=== PATIENT | female | born 1995 | race Caucasian/White ===

== ENCOUNTER 2017-12-07 12:43 | Emergency (ER) | payer OTHER ==
[~2017-12-07] VITALS: Ht 157.5 cm; Wt 98.0 kg
[2017-12-07 12:53] VITALS: BP 138/67
--- NOTE | 2017-12-07 13:06 | NUR ---
PT PRESENTS TO ED C/O NECK PAIN AND SOB SINCE THIS MORNING. PT HAS A NOTICEABLE LUMP TO ANTERIOR MEDIAL LEFT NECK, STATES SHE HAS BEEN SEEN BY HER PCP, AND WAS SEEN BY ENDROCRINOLOGIST AND HAD US DONE WITH RESULTS READ, BUT THIS MORNING HAD INCREASED PAIN AND SOB AND WANTS TO BE CHECKED OUT AGAIN. DENIES N/V/DIZZINESS OR CP. AMBULATES WITH NORMAL GAIT. PENDING MD SERNA
--- NOTE | 2017-12-07 13:22 | NUR ---
DR WISDOM AT BEDSIDE
[2017-12-07] MEDS ORDERED: KETOROLAC 30 MG/ML VIAL IM ONE (13:25)
[2017-12-07 13:49] VITALS: BP 130/75
== END 2017-12-07 13:50 | disposition home or self-care (01) ==
LOC: MED 12:43
DX: E04.1 Nontoxic single thyroid nodule (principal)
CPT/HCPCS: 96372; 99283; J1885

== ENCOUNTER 2020-11-03 14:50 | Outpatient (CLI) | payer OTHER, SELFPAY ==
[~2020-11-03 14:50] MED LIST: DOXY100C12 PO; OMEP20TC12 PO
[2020-11-05] MEDS ORDERED: BUPIVACAINE MPF 0.25% 10 ML VIAL INJ ONE ×2 (07:13)
== END 2020-11-03 23:59 | disposition home or self-care (01) ==
LOC: MLB 14:50 → EDSTATUS 11-05 07:30
PROVIDERS: ATTEND Obstetrics & Gynecology
DX: Z20.822 Contact with and (suspected) exposure to COVID-19 (principal)
CPT/HCPCS: J3490

== ENCOUNTER 2020-12-25 11:10 | Inpatient (IN) | payer OTHER, SELFPAY ==
[~2020-12-25] VITALS: Ht 157.5 cm; Wt 104.3 kg
[2020-12-25 11:13] VITALS: BP 160/99
[2020-12-25] MEDS ORDERED: ONDANSETRON 4 MG/2 ML VIAL IVP ONE (11:40)
[2020-12-25] MEDS ORDERED: MORPHINE SULFATE 4 MG/ML SYR IVP ONE (11:40)
[2020-12-25 11:58] LABS: BASOPHILS # (AUTO) 0.1 K/uL (0.00-0.22); BASOPHILS % (AUTO) 0.6 % (0.0-2.0); EOSINOPHILS # (AUTO) 0.3 K/uL (0-0.4); EOSINOPHILS % (AUTO) 3.9 % (0.0-4.0); HEMATOCRIT 36.3 % (36-48); HEMOGLOBIN 11.8 g/dL (12.0-16.0); LYMPHOCYTES # (AUTO) 1.3 K/uL (2.5-16.5); LYMPHOCYTES % (AUTO) 16.2 % (20.5-51.1); MEAN CORPUSCULAR HEMOGLOBIN 24 pg (27-31); MEAN CORPUSCULAR HGB CONC 32 g/dL (33-37); MEAN CORPUSCULAR VOLUME 72.6 fL (80-94); MONOCYTES # (AUTO) 0.6 K/uL (0.8-1.0); MONOCYTES % (AUTO) 6.9 % (1.7-9.3); NEUTROPHILS % (AUTO) 72.4 % (42.2-75.2); PLATELET COUNT (AUTO) 168 K/uL (140-450); RED CELL DISTRIBUTION WIDTH 16.4 % (11.6-13.7); WHITE BLOOD COUNT (AUTO) 8.3 K/uL (4.8-10.8)
--- NOTE | 2020-12-25 12:02 | NUR ---
C/O LOWER ABDOMINAL PAIN, VAGINAL PAIN & BARTHOLIN'S CYST S/P I&D AT [facility] LAST NIGHT. PATIENT STATES SHE HAS BEEN HAVING EXCESSIVE AMOUNT OF BLEEDING AT CYST SITE, AND SOAKING AROUND 4 PADS. PATIENT IS HAVING 10/10 PAIN AT SITE. PMH: THYROID, GERD
[2020-12-25 12:08] LABS: ANION GAP 15.6 (8-16); CARBON DIOXIDE 24.5 mmol/L (21-32); CREATININE 0.5 mg/dL (0.6-1.3); POTASSIUM 4.1 mmol/L (3.5-5.1)
[2020-12-25 12:10] LABS: PROTHROMBIN TIME 9.9 secs (10.8-13.4)
--- NOTE | 2020-12-25 12:20 | NUR ---
NATHANAEL METCALF AT BEDSIDE FOR PELVIC EXAM WITH RN AT BEDSIDE. UPON INSPECTION OF ANGELITO CATHETER AND SITE OF BLEEDING, APPROX 500 ML OF BLOOD WAS LOST PT BEGAN BLEEDING AT CYST SITE. VSS. BLEEDING CONTROLLED IMMEDIATELY BY NATHANAEL USING MECHANICAL PRESSURE. MD DIAZ MADE AWARE. PT DOING WELL AT THIS TIME.
[2020-12-25] MEDS ORDERED: TRANEXAMIC ACID 1,000 MG/10 ML VIAL ONE (12:30)
[2020-12-25] MEDS ORDERED: LIDOCAINE/EPI 1% 1:100000 20 ML VIAL INJ ONE ×2 (12:32→13:05)
[2020-12-25] MEDS ORDERED: TRANEXAMIC ACID 1,000 MG/10 ML VIAL MC ONE (13:05)
[2020-12-25] MEDS ORDERED: KCL 20 MEQ/WATER INJ PREMIX 200 ML IV PRN (14:25)
[2020-12-25] MEDS ORDERED: MAGNESIUM OXIDE 400 MG TAB PO PRN (14:25)
[2020-12-25] MEDS ORDERED: LORazepam 1 MG TAB PO PRN (14:25)
[2020-12-25] MEDS ORDERED: ZOLPIDEM 5 MG TAB PO PRN (14:25)
[2020-12-25] MEDS ORDERED: HYDROcodone/APAP 5/325 MG 1 TAB TAB PO PRN (14:25)
[2020-12-25] MEDS ORDERED: ACETAMINOPHEN 325 MG TAB PO PRN (14:25)
[2020-12-25] MEDS ORDERED: POTASSIUM CHLORIDE 10 MEQ TABER PO PRN (14:25)
[2020-12-25] MEDS ORDERED: ONDANSETRON 4 MG/2 ML VIAL IVP PRN (14:25)
[2020-12-25] MEDS ORDERED: MAG SULF 2000 MG/WATER PREMIX 50 ML IV PRN (14:25)
[2020-12-25] MEDS ORDERED: HYDROmorphone 1 MG/ML AMP IVP PRN (14:25)
[2020-12-25] MEDS: DEXT 5% / NACL 0.45% 1,000 ML IV SCH (14:58)
--- NOTE | 2020-12-25 16:27 | NUR ---
REPORT GIVEN TO ALMA LIVINGSTON.
--- NOTE | 2020-12-25 16:29 | NUR ---
RECEIVED TELEPHONE REPORT FROM ER NURSE MAGALIE MARQUEZ.
--- NOTE | 2020-12-25 16:50 | NUR ---
Patient will be admitted to care of DR ARZOLA. Admited to MED SURG. Will go to room 105B. Belongings list completed. Report to ALMA LIVINGSTON.
[2020-12-25 17:15] VITALS: BP 109/60
--- NOTE | 2020-12-25 17:15 | NUR ---
PATIENT ARRIVED FROM ER .ABLE TO AMBULATE INDEPENDENTLY WITH STEADY GAIT. IV SITE INTACT, PATENT. SKIN INTACT. ORIENTED PATIENT TO ROOM AND CALL LIGHT. REVIEWED PLAN OF CARE WITH PATIENT. PATIENT VERBALIZED UNDERSTANDING. WILL CONTINUE TO MONITOR.
--- NOTE | 2020-12-25 18:30 | NUR ---
DR. DIAZ AT BEDSIDE REVIEWING PLAN OF CARE WITH PATIENT. WILL CONTINUE TO MONITOR.
--- NOTE | 2020-12-25 19:29 | NUR ---
GAVE REPORT TO NEUROLOGY STROKE PHYSICIAN NURSE FOR CONTINUITY OF CARE. PATIENT IN STABLE CONDITION.
[2020-12-25 20:00] VITALS: BP 117/60
--- NOTE | 2020-12-25 20:00 | NUR ---
RECEIVED BEDSIDE REPORT EARLIER FROM DAY RN FOR CONTINUITY OF CARE. PATIENT A/A/OX4, SITTING UP IN BED EATING DURING ROUNDS. PATIENT NOT ON ANY DISTRESS. DENIES ANY PAIN AT THIS TIME. IVF INFUSING ORDERED. DISCUSSED PLAN OF CARE WITH THE PATIENT AND VERBALIZED UNDERSTANDING. INSTRUCTED TO CALL IF SHE NEEDS ANYTHING. CALL LIGHT WITHIN REACH. WILL CONTINUE PLAN OF CARE.
[2020-12-25] MEDS: DOXYCYCLINE 100 MG CAP PO SCH (20:44)
--- NOTE | 2020-12-25 22:00 | NUR ---
ADMINISTERED THE SCHEDULED MEDICATION EARLIER AND PATIENT TOLERATED IT WELL. NO ADVERSE DRUG REACTION NOTED AND NO COMPLAIN FROM THE PATIENT.
--- NOTE | 2020-12-26 | NUR ---
PATIENT STILL AWAKE AND WATCHING TV, STATED THAT SHE COULDN'T SLEEP. NOT IN ANY DISTRESS NO COMPLAIN AT THIS TIME. CALL LIGHT WITHIN REACH.
--- NOTE | 2020-12-26 02:00 | NUR ---
PATIENT ASLEEP AT THIS TIME. VISIBLE SYMMETRICAL CHEST RISE AND FALL NOTED. SAFETY MEASURES IN PLACED.
[2020-12-26 04:00] VITALS: BP 93/63
--- NOTE | 2020-12-26 04:00 | NUR ---
PATIENT BP 93/48. PATIENT ASYMPTOMATIC, DENIES ANY DIZZINESS AND LIGHTHEADEDNESS. OTHERWISE VSS, AFEBRILE, [id number]% ON RA. PATIENT HAS SCANTY BLEEDING NOW. CALL LIGHT WITHIN REACH.
[2020-12-26] MEDS: DEXT 5% / NACL 0.45% 1,000 ML IV SCH ×2 (05:11→15:25)
--- NOTE | 2020-12-26 06:25 | NUR ---
PATIENT STABLE. NOT IN ANY DISTRESS. NO COMPLAIN AT THIS TIME. ALL NEEDS ATTENDED. CALL LIGHT WITHIN REACH. WILL ENDORSE THE PATIENT TO THE ONCOMING RN FOR CONTINUITY OF CARE.
[2020-12-26 06:39] LABS: BASOPHILS % (AUTO) 0.5 % (0.0-2.0); EOSINOPHILS # (AUTO) 0.4 K/uL (0-0.4); EOSINOPHILS % (AUTO) 5.7 % (0.0-4.0); HEMATOCRIT 29.6 % (36-48); HEMOGLOBIN 9.5 g/dL (12.0-16.0); LYMPHOCYTES # (AUTO) 1.8 K/uL (2.5-16.5); LYMPHOCYTES % (AUTO) 24.9 % (20.5-51.1); MEAN CORPUSCULAR HEMOGLOBIN 24 pg (27-31); MEAN CORPUSCULAR HGB CONC 32 g/dL (33-37); MEAN CORPUSCULAR VOLUME 74.3 fL (80-94); MONOCYTES # (AUTO) 0.6 K/uL (0.8-1.0); MONOCYTES % (AUTO) 7.9 % (1.7-9.3); NEUTROPHILS # (AUTO) 4.4 K/uL (1.8-7.7); PLATELET COUNT (AUTO) 157 K/uL (140-450); RED BLOOD CELL COUNT(AUTO) 3.99 MIL/uL (4.20-5.40); RED CELL DISTRIBUTION WIDTH 16.4 % (11.6-13.7); WHITE BLOOD COUNT (AUTO) 7.3 K/uL (4.8-10.8)
--- NOTE | 2020-12-26 07:15 | NUR ---
PT RECEIVED FROM CLOTH SHRINKING TESTER RN. PT LAYING IN BED. ABLE TO MAKE NEEDS KNOWN. DENIES ANY PAIN OR DISCOMFORT NO S S/S OF DISTRESS AT THIS TIME. CALL LIGHT IS WITHIN REACH ALL SAFETY MEASURES ARE IN PLACE.
--- NOTE | 2020-12-26 07:15 | NUR ---
PATIENT STABLE. ENDORSED THE PATIENT TO DAY RN GRECIA FOR CONTINUITY OF CARE. SIGNING OFF.
[2020-12-26 07:23] LABS: ALBUMIN 3.2 g/dL (3.4-5.0); ANION GAP 11.2 (8-16); CARBON DIOXIDE 26.7 mmol/L (21-32); CREATININE 0.5 mg/dL (0.6-1.3); POTASSIUM 3.9 mmol/L (3.5-5.1); TOTAL BILIRUBIN 0.5 mg/dL (0.0-1.0)
--- NOTE | 2020-12-26 07:29 | NUR ---
RESIDENT AT BEDSIDE. PERFORMED PELVIC EXAM WITH RN AT BEDSIDE. PT TOLERATED WELL. NO COMPLAINS OF PAIN OR DISCOMFORT. NO S S/S OF DISTRESS AT THIS TIME. CALL LIGHT IS WITHIN REACH ALL SAFETY MEASURES ARE IN PLACE.
--- NOTE | 2020-12-26 08:35 | NUR ---
PATIENT HAS BEEN SCREENED AND CATEGORIZED LOW NUTRITION RISK. PATIENT WILL BE SEEN WITHIN 7 DAYS OF ADMISSION. 01/01/[address]
[2020-12-26] MEDS: DOXYCYCLINE 100 MG CAP PO SCH (08:52)
[2020-12-26] MEDS ORDERED: DOCUSATE SODIUM 100 MG GELCAP PO SCH (09:00)
--- NOTE | 2020-12-26 09:02 | NUR ---
MEDICATIONS GIVEN PER MD ORDER. PT EDUCATED AND VERBALIZED UNDERSTANDING. PT TOLERATED WELL. PRN GIVEN FOR HEADACHE.
--- NOTE | 2020-12-26 09:10 | NUR ---
PT PERFORMED SPONGE BATH , NEW UNDIES AND PADS PROVIDED. PT ABLE TO PERFORM INDEPENDENTLY. NO S/S OF DISTRESS. PT TOLERATED WELL.
--- NOTE | 2020-12-26 10:05 | NUR ---
MILK HANDLER AT BEDSIDE.
--- NOTE | 2020-12-26 10:09 | NUR ---
PT ROUNDED ON . PT STATES HEAD ACHE IS STILL PRESENT. BUT TOLERABLE. PT IS RESTING IN BED WATCHING CARTOONS. NO S/S OF DISTRESS. IV LEFT AC IS CLEAN DRY AND INTACT. LEFT BARTHOLIN CYST BLEEDING IS MINIMAL.
[2020-12-26 11:53] LABS: RAPID PLASMA REAGIN NON-REACTIVE (Non Reactiv)
[2020-12-26 12:00] VITALS: BP 104/58
--- NOTE | 2020-12-26 12:00 | NUR ---
PTS VITALS WERE TAKEN. PT DENIES ANY PAIN AT THIS TIME. PT IN BED WATCHING TV. NO S/S OF DISTRESS AT THIS TIME.
--- NOTE | 2020-12-26 13:30 | NUR ---
PT ASKED FOR ORANGE JUICE AND SNACK. PT ON REGULAR DIET PT GIVEN ORANGE JUICE AND SNACK. PT TOLERATED WELL NO S/S OF DISTRESS
[2020-12-26 15:06] LABS: HEPATITIS B SURFACE ANTIGEN Negative (Negative)
--- NOTE | 2020-12-26 15:08 | NUR ---
PT ROUNDED ON. PT SITTING IN BED TALKING TO STEP MOM. PT DENIES PAIN OR DISCOMFORT AT THIS TIME. PT ABLE TO MAKE NEEDS KNOWN NO S/S OF DISTRESS
--- NOTE | 2020-12-26 15:49 | NUR ---
MD DIAZ CALLED. PT DENIES ANY MORE BLEEDING. NO PAIN OR DISCOMFORT. PT DENIES DIZZINESS NAUSEA OR VOMITING.
[2020-12-26 16:19] VITALS: BP 104/53
--- NOTE | 2020-12-26 17:31 | NUR ---
PT DISCHARGE INSTRUCTIONS GIVE. PT VERBALIZED UNDERSTANDING. PT IV REMOVED, CANULA INTACT. PT PACKET GIVEN , ARM BANDS REMOVED AND TAKE OUTSIDE VIA WHEEL CHAIR. PT WALKED TO CAR INDEPENDENTLY TOLERATED WELL.
== END 2020-12-26 17:30 | disposition home or self-care (01) | DRG 810 ==
LOC: MED 11:10 → MTU 14:29
PROVIDERS: ADMIT Hospitalist; ATTEND Hospitalist
DX: N99.820 Postprocedural hemorrhage of a genitourinary system organ or structure following a genitourinary system procedure (principal); E89.0 Postprocedural hypothyroidism; K21.9 Gastro-esophageal reflux disease without esophagitis; Z20.822 Contact with and (suspected) exposure to COVID-19; Y83.8 Other surgical procedures as the cause of abnormal reaction of the patient, or of later complication, without mention of misadventure at the time of the procedure; N83.209 Unspecified ovarian cyst, unspecified side
CPT/HCPCS: 36415; 80048; 80053; 84443; 84702; 85025; 85610; 85730; 86592; 86803; 86886; 86900; 86901; 87081; 87340; 96374; 96375; 99285; J2001; J2270; J2405; J3490

== ENCOUNTER 2021-08-09 15:50 | Emergency (ER) | payer OTHER ==
[~2021-08-09] VITALS: Ht 157.5 cm; Wt 107.0 kg
[2021-08-09 16:10] VITALS: BP 154/80
[2021-08-09] MEDS ORDERED: ATA25 PO (16:25)
[2021-08-09] MEDS ORDERED: PRED20TA5 PO (16:25)
--- NOTE | 2021-08-09 16:30 | NUR ---
ATTEMPTED TO CALL PATIENT TO PROVIDE DISCHARGE PAPERWORK AND NO ANSWER
--- NOTE | 2021-08-09 16:39 | NUR ---
ATTEMPTED TO CALL PATIENT AND NO ANSWER. LEFT PATIENT VOICEMAIL INFORMING WE HAVE DISCHARGE PAPERWORK FOR HER
--- NOTE | 2021-08-09 16:40 | NUR ---
Patient discharged with v/s stable. Written and verbal after care instructions given and explained. Patient alert, oriented and verbalized understanding of instructions. Ambulatory with steady gait. All questions addressed prior to discharge. ID band removed. Patient advised to follow up with PMD. Rx of ATARAX HCL,DELTASONE given. Patient educated on indication of medication including possible reaction and side effects. Opportunity to ask questions provided and answered. PT STABLE, PT LEFT WITHOUT HER DISCHARGE INFO/PAPER
== END 2021-08-09 16:30 | disposition home or self-care (01) ==
LOC: MED 15:50
DX: L50.9 Urticaria, unspecified (principal); K21.9 Gastro-esophageal reflux disease without esophagitis; E07.9 Disorder of thyroid, unspecified; Z98.890 Other specified postprocedural states; Z79.899 Other long term (current) drug therapy
CPT/HCPCS: 99283

== ENCOUNTER 2021-10-05 12:45 | Emergency (ER) | payer OTHER ==
[~2021-10-05] VITALS: Ht 157.5 cm; Wt 108.9 kg
[~2021-10-05 12:45] MED LIST changes: +ATA25 PO; -DOXY100C12 PO; -OMEP20TC12 PO; +PRED20TA5 PO
[2021-10-05 12:58] VITALS: BP 137/86
--- NOTE | 2021-10-05 14:18 | NUR ---
DR VASQUEZ EXAMINING PT IN TRIAGE
[2021-10-05 14:48] VITALS: BP 137/86
--- NOTE | 2021-10-05 14:48 | NUR ---
No nursing interventions implemented. Patient discharged with v/s stable. Written and verbal after care instructions given and explained. Patient alert, oriented and verbalized understanding of instructions. Ambulatory with steady gait. All questions addressed prior to discharge. ID band removed. Patient advised to follow up with PMD. Opportunity to ask questions provided and answered.
== END 2021-10-05 14:48 | disposition home or self-care (01) ==
LOC: MED 12:45
DX: R07.9 Chest pain, unspecified (principal); R06.02 Shortness of breath; K21.9 Gastro-esophageal reflux disease without esophagitis; E07.9 Disorder of thyroid, unspecified
CPT/HCPCS: 93005; 99283

== ENCOUNTER 2023-02-07 19:46 | Emergency (ER) | payer OTHER ==
[~2023-02-07] VITALS: Ht 157.5 cm; Wt 111.1 kg
[2023-02-07 20:09] VITALS: BP 110/74; PULSE 96; RESP 18; TEMP 98.3; O2SAT 100
--- NOTE | 2023-02-07 20:35 | NUR ---
PT BEING EVALUATED BY DR. KOO
[2023-02-07] MEDS ORDERED: FUROSEMIDE 40 MG TAB PO ONE (20:40)
[2023-02-07] MEDS ORDERED: KETOROLAC 30 MG/ML VIAL IM ONE (20:40)
--- NOTE | 2023-02-07 20:40 | NUR ---
PT TO BED #8
[2023-02-07 20:45] VITALS: BP 110/74; PULSE 96; RESP 18; TEMP 98.3; O2SAT 100
--- NOTE | 2023-02-07 21:00 | NUR ---
27YO F BIB SELF C/O EDEMA TO BILATERAL LOWER EXTREMETIES X3.5 WEEKS. PT STATES BACK/NECK PAIN 8/10 FOR 3.5 WEEKS SINCE ONSET OF EDEMA. DENIES CP AND SOB. NKDA HX HYPOTHYROIDISM, ARTHRITIS, OVARIAN CYST, ANEMIA
--- NOTE | 2023-02-07 21:25 | NUR ---
ULTRASOUND AT BEDSIDE. URINE COLLECTED AND SENT. PT RESTING IN BED WITH PAIN LEVEL 3/10 AT THE NECK.
[2023-02-07 21:52] LABS: BASOPHILS # (AUTO) 0.1 K/uL (0.00-0.22); BASOPHILS % (AUTO) 0.7 % (0.0-2.0); EOSINOPHILS # (AUTO) 0.5 K/uL (0-0.4); EOSINOPHILS % (AUTO) 5.4 % (0.0-4.0); HEMATOCRIT 34.3 % (36-48); LYMPHOCYTES # (AUTO) 2.2 K/uL (2.5-16.5); LYMPHOCYTES % (AUTO) 23.6 % (20.5-51.1); MEAN CORPUSCULAR HEMOGLOBIN 24 pg (27-31); MEAN CORPUSCULAR HGB CONC 32 g/dL (33-37); MEAN CORPUSCULAR VOLUME 73.5 fL (80-94); MONOCYTES # (AUTO) 0.7 K/uL (0.8-1.0); MONOCYTES % (AUTO) 7.3 % (1.7-9.3); NEUTROPHILS # (AUTO) 5.8 K/uL (1.8-7.7); PLATELET COUNT (AUTO) 258 K/uL (140-450); RED BLOOD CELL COUNT(AUTO) 4.66 MIL/uL (4.20-5.40); RED CELL DISTRIBUTION WIDTH 15.5 % (11.6-13.7); WHITE BLOOD COUNT (AUTO) 9.3 K/uL (4.8-10.8)
[2023-02-07 22:12] LABS: ALBUMIN 3.8 g/dL (3.4-5.0); ANION GAP 14.3 (8-16); CARBON DIOXIDE 27.2 mmol/L (21-32); CREATININE 0.5 mg/dL (0.6-1.3); POTASSIUM 3.5 mmol/L (3.5-5.1); TOTAL BILIRUBIN 0.7 mg/dL (0.0-1.0)
[2023-02-07 22:30] LABS: APPEARANCE,URINE CLEAR (CLEAR); BILIRUBIN,URINE NEGATIVE (NEGATIVE); BLOOD, URINE TRACE-I (NEGATIVE); COLOR,URINE YELLOW (YELLOW); LEUKOCYTE ESTERASE ,URINE NEGATIVE (NEGATIVE); NITRITE, URINE NEGATIVE (NEGATIVE); PH,URINE 5.5 (5.0-9.0); UGLUCOSE NEGATIVE (NEGATIVE)
[2023-02-07] MEDS ORDERED: FURO-572 PO (22:40)
[2023-02-07 22:45] LABS: RBC,URINE 0-5 /HPF (0-5)
--- NOTE | 2023-02-07 22:54 | NUR ---
Radha palomino in ED - 02/07/23 at 2254 by TAMAR Patient discharged with v/s stable. Written and verbal after care instructions given and explained. Patient verbalized understanding. Ambulatory with steady gait. All questions addressed prior to discharge. Advised to follow up with PMD.
== END 2023-02-07 22:52 | disposition home or self-care (01) ==
LOC: MED 19:46
DX: R60.9 Edema, unspecified (principal); D64.9 Anemia, unspecified; E03.9 Hypothyroidism, unspecified; Z79.899 Other long term (current) drug therapy
CPT/HCPCS: 36415; 71045; 80053; 81001; 81025; 83880; 84484; 85025; 87086; 93970; 96372; 99285; J1885; Q0092